=== PATIENT | female | born 1975 | race Caucasian/White ===

== ENCOUNTER → 2019-06-24 15:49 | Outpatient (CLI) | payer BC ==
[2019-06-24 16:15] LABS: HEMOGLOBIN 14.7 g/dL (12-16); MCH 30.6 pg (26.0-34.0); MCHC 33.4 g/dL (31.0-37.0); MCV 91.5 fL (80.0-100.0); MEAN PLATELET VOLUME 9.5 fL (7.4-10.4); PLATELET COUNT 340 10x3/uL (130-400); RBC 4.81 10x6/uL (4.00-5.40); RDW 13.2 % (11.5-14.5); WBC 13.2 10x3/uL (4.8-10.8)
[2019-06-24 16:34] LABS: ALBUMIN 3.3 g/dL (3.4-5.0); ANION GAP 11.9 mmol/L (8-16); BILIRUBIN - TOTAL 0.16 mg/dL (0.2-1.3); C-REACTIVE PROTEIN 0.7 mg/dL (0.0-0.9); CALCIUM 8.7 mg/dL (8.5-10.1); CARBON DIOXIDE 25.9 mmol/L (21.0-32.0); CREATININE - SERUM 0.9 mg/dL (0.6-1.3); POTASSIUM - SERUM 3.8 mmol/L (3.5-5.1); PROTEIN - SERUM 6.7 g/dL (6.4-8.2)
[2019-06-24 17:47] LABS: EOSINOPHILS 2 % (0-7); LYMPHOCYTES 25 % (15-50); NEUTROPHILS 73 % (40-80); PLATELET ESTIMATE NORMAL
[2019-06-24 18:16] LABS: ERYTHROCYTE SEDIMENTATION RATE 7 mm/hr (0-20)
== END | disposition home or self-care (01) ==
LOC: D.LAB 15:49
PROVIDERS: ATTEND Internal Medicine Hematology & Oncology
DX: D72.829 Elevated white blood cell count, unspecified (principal); D05.11 Intraductal carcinoma in situ of right breast; D68.9 Coagulation defect, unspecified; D47.3 Essential (hemorrhagic) thrombocythemia

== ENCOUNTER → 2019-11-11 12:34 | Outpatient (CLI) | payer BC | END | disposition home or self-care (01) | LOC: D.US 12:34 | PROVIDERS: ATTEND Internal Medicine | DX: M54.2 Cervicalgia (principal) ==

== ENCOUNTER → 2020-06-12 14:36 | Outpatient (CLI) | payer BC | END | disposition home or self-care (01) | LOC: D.US 14:30 | PROVIDERS: ATTEND Internal Medicine | DX: R92.8 Other abnormal and inconclusive findings on diagnostic imaging of breast (principal); Z85.3 Personal history of malignant neoplasm of breast ==